=== PATIENT | female | born 1980 | race Caucasian/White ===

== ENCOUNTER 2022-05-28 08:11 | Outpatient (CLI) | payer BC | END 2022-05-28 08:12 | disposition home or self-care (01) | LOC: CSHWCC 08:11 | PROVIDERS: ATTEND Nurse Practitioner Family | DX: S31.502D Unspecified open wound of unspecified external genital organs, female, subsequent encounter (principal) | CPT/HCPCS: 99212; G0463 ==

== ENCOUNTER 2024-11-30 14:51 | Outpatient (CLI) | payer BC | END 2024-11-30 14:52 | disposition home or self-care (01) | LOC: CSHMAMMO 14:51 | PROVIDERS: ATTEND Physician Assistant | DX: Z13.820 Encounter for screening for osteoporosis (principal); M85.89 Other specified disorders of bone density and structure, multiple sites | CPT/HCPCS: 77080 ==